=== PATIENT | female | born 1945 | race Caucasian/White ===

== ENCOUNTER 2018-02-15 17:37 | Inpatient (IN) ==
[2018-02-15 19:33] LABS: Basophils # 0.1 K/mcL (0.0-0.2); Eosinophils # 0.1 K/mcL (0.0-0.6); Hematocrit 25.1 % (35.3-44.9); Hemoglobin 7.8 g/dL (11.5-15.4); Immature Granulocytes % 0.5 % (0-4); Lymphocytes # 1.2 K/mcL (0.6-4.6); Lymphocytes % 20.6 %; Mean Corpuscular HGB Conc 31.1 g/dL (31.6-35.5); Mean Corpuscular Hemoglobin 27.2 pg (28.0-33.3); Mean Corpuscular Volume 87.5 fL (83.0-100.0); Mean Platelet Volume 10.2 fL (9.4-12.4); Monocytes # 0.6 K/mcL (0.0-1.3); Monocytes % 10.1 %; Platelet Count 337 K/mcL (140-400); Red Blood Count 2.87 M/mcL (3.82-4.97); Red Cell Distribution Width 14.1 % (11.5-14.5); Segmented Neutrophils % 66.8 %
[2018-02-15 19:45] LABS: Troponin I < 0.03 ng/mL (< 0.04)
[2018-02-15 19:46] LABS: Alanine Aminotransferase 10 Units/L (7-52); Albumin 2.5 g/dL (3.5-5.7); Albumin/Globulin Ratio 0.8 (1.1-2.2); Alkaline Phosphatase 62 Units/L (34-104); Aspartate Amino Transferase 12 Units/L (13-39); BUN/Creatinine Ratio 6 (6-26); Bilirubin,Total 0.4 mg/dL (0.3-1.0); Blood Urea Nitrogen 10 mg/dL (8-23); Calcium 9.2 mg/dL (8.6-10.3); Carbon Dioxide 31 mEq/L (23-29); Chloride 102 mEq/L (98-107); Globulin 3.3 g/dL (2.4-3.5); Glucose 118 mg/dL (70-105); Lipase 11 Units/L (11-82); Osmolality,Calculated 286 (280-300); Potassium 3.1 mEq/L (3.5-5.1); Sodium 138 mEq/L (136-145); Total Protein 5.8 g/dL (6.4-8.9); eGFR For Non-African Americans 32 (> 60)
[2018-02-15] MEDS ORDERED: Naloxone 0.4 MG/ML INJ IVP PRN (20:24)
[2018-02-15] MEDS ORDERED: 0.9 % Sodium Chloride 1,000 ML IVC SCH (20:30)
--- NOTE | 2018-02-15 21:00 | Internal Med History&Physical ---
Addendum entered and electronically signed by Layla Ahuja 02/15/18 23:09: A/P: Hypokalemia - K = 3.1 on admission; Repleted with 40mEq KCl; Replete as needed Original Note: <SeymourLayla - Last Filed: 02/15/18 22:45> Date of Encounter: 02/15/18 Time of Encounter: 21:00 Internal Medicine - H&P: HPI Chief complaint: Chest Pain Admitted From: Hospital to Hospital Transfer Plans for Post Hospital Care: Transfer Long Term Facility History of present illness: Ms. Pearson is a 72 year old female with past medical history significant for an stage renal disease on hemodialysis, hypertension, hyperlipidemia, diabetes, LLE DVT on coumadin who presented from dialysis to [facility] ED with complaints of chest pain. Patient states that she was feeling chest pain as of this morning prior to dialysis, and then after 2 hours of dialysis started fe eling chest pain again. Describes chest pain as heavy, pressure-like, "like something was sitting on his chest" and notes that it radiated to both her arms. Notes pain was significant but resolved after 5 minutes. Associated with fatigue, dyspnea, nausea, malaise, generalized bad feeling. Denies headache, vision changes, lightheadedness, dizziness, vomiting, weakness, pain with breathing, cough. States the chest pain persisted even on her way from dialysis to the ER, but was much milder. Patient also notes taking 2 sublingual nitroglycerin tabs, which alleviated chest pain. Of note, patient was recently diagnosed with left lower extremity DVT 1 month ago and currently on Coumadin. Initial vitals in the ED: T = 97.7, HR = 91, RR = 21, BP = 127/112, O2 = 96% on 3 L oxygen via nasal cannula EKG: HR = 94, AZ = 183, QRS = 93, QT = 379; normal sinus rhythm, normal axis, normal intervals, no acute ST changes Initial troponin: Negative CXR: No acute findings CBC: Hb/Hct = 7.5/24.6; down from previous hemoglobin 1 month ago (01/16/18) which equals 10.9 BMP: K = 3.2; BUN/Cr = 7/1.44; otherwise within normal limits INR = 1.8 Patient was initially given additional sublingual nitroglycerin, aspirin in the ED. Troponin and EKG were negative. Chest x-ray showed no acute findings. Patient was found to be anemic. Fecal occult blood test found to be positive. Due to patient's chest pain, history of DVT on Coumadin, and symptomatic anemia, decision was made to transfer patient from [facility] to [facility] for further workup of possible GI bleed. Upon examination, pt resting comfortably with family at bedside in no acute distress. Pt currently denying chest pain, discomfort, nausea, fatigue. Per discussion with family, DVT identified in Left Upper Leg, and pt began coumadin 1 month ago. Exam notable for 3/6 systolic murmur, but otherwise regular rate and rhythm; Lungs CTAB, and abd soft, non-tender. LLE 1.5 swelling greater than RLE. Distal pulses palpable. Advertising Dispatch Clerk and Cripple Worker were consulted. Plan to admit patient for further workup of anemia and chest pain. Past Med Surg Social Fam HX - Past Medical History Attestation: Yes The following information was validated with the patient. Source: patient, old records reviewed Medical history: arthritis, DVT, diabetes, dialysis, hyperlipidemia, hypertens ion, renal disease, other Additional medical history: CKD STAGE 4. HTN. HIGH CHOLESTEROL. DM. DVT HISTORY Psychiatric history: no psych history - Past Surgical History Surgical History: hysterectomy, orthopedic, other - Social History Smoking Status: Never smoker Smokeless Tobacco Status: No Alcohol use: none Drug use: none Internal Medicine - H&P: Meds Aspirin 81 mg PO DAILY 07/12/17 [History] Calcitriol [Rocaltrol] 0.25 mcg PO DAILY 07/12/17 [History] Cholecalciferol (D-3) [Vitamin D] 1,000 unit PO DAILY 07/12/17 [History] Cranberry 500 mg PO DAILY 07/12/17 [History] Insulin Glargine,Hum.rec.anlog [Lantus Solostar] 30 unit SQ HS 07/12/17 [Hi story] Insulin LISPRO [Humalog] 15 unit SQ TID 07/12/17 [History] Losartan/Hydrochlorothiazide [Hyzaar 100-25 Tablet] 1 tab PO DAILY 07/12/17 [History] Pravastatin Sodium [Pravachol] 40 mg PO DAILY 07/12/17 [History] amLODIPine [Norvasc] 5 mg PO DAILY 07/12/17 [History] Furosemide [Lasix] 40 mg PO DAILY PRN 10/04/17 [History] Allergy/AdvReac Type Severity Reaction Status Date / Time iodine Allergy See Verified 10/04/17 10:10 Comments latex Allergy Rash Verified 10/04/17 10:10 naproxen [From Naprosyn] Allergy See Verified 10/04/17 10:10 Comments morphine AdvReac Vomiting Verified 10/04/17 10:10 All Systems PM: A 10-system review of systems was performed and is negative for pertinent findings except as documented above in the HPI. - Constitutional Constitutional: fatigue, malaise, no chills, no fever(s), no falls, no lethargy, no weakness - EENT Eyes: no blurry vision, no change in vision Nose, mouth and throat: dry mouth, no facial pain, no nasal congestion, no nasal discharge, no neck pain, no post-nasal drip, no sinus pain, no sore throat - Cardiovascular Cardiovascular ROS IM: no chest pain, no diaphoresis, no dyspnea, no dyspnea on exertion, no edema, no irregular heart rhythm, no lightheadedness, no palpitations, no syncope - Respiratory Respiratory: no cough, no dyspnea, no dyspnea on exertion - Gastrointestinal Gastrointestinal: no abdominal pain, no constipation, no cramping, no diarrhea, no heartburn, no hematemesis, no hematochezia, no loose stools, no melena, no nausea, no vomiting - Musculoskeletal Musculoskeletal ROS IM: no back pain, no neck pain - Integumentary Integumentary IM: no rash - Neurological Neurological ROS: confusion, no dizziness, no headache(s), no numbness, no weakness - Constitutional Vitals: Temp Pulse Resp BP Pulse Ox 98.6 F 94 16 142/51 98 02/15/18 20:21 02/15/18 20:21 02/15/18 20:21 02/15/18 20:21 02/15/18 20:21 General appearance: Present: cooperative, A&O X 3, pleasant, no acute distress, obese, answers questions appropriately Exam: GEN: AOx3; NAD; resting comfortably; family at bedside HEENT: Atraumatic, normocephalic; EOMI; mucous membranes moist; EOMI; PERRLA CARDIO: 3/6 systolic murmur; RRR; no extra heart sounds RESP: CTAB, no wheezes, rales, rhonchi; O2 sats = 98 on 2L NC ABD: Soft, non-tender, non-distended; bowel sounds present; no rebound or guarding EXT: LLE 1.5 times more swelling > RLE; non tender; no rashes or lesions NEURO: CN 2-12 intact; no focal deficits Internal Med - H&P Results - Labs CBC & Chem 7: 02/15/18 18:57 02/15/18 18:57 Labs: Short CBC 02/15/18 Range/Units 18:57 WBC 6.0 (4.3-11.1) K/mcL Hgb 7.8 L (11.5-15.4) g/dL Hct 25.1 L (35.3-44.9) % Plt Count 337 (140-400) K/mcL Neutrophils # 4.0 (1.6-8.9) K/mcL BMP 02/15/18 18:57 Sodium 138 Potassium 3.1 L Chloride 102 Carbon Dioxide 31 H BUN 10 Creatinine 1.60 H Glucose 118 H Calcium 9.2 Cardiac Enzymes 02/15/18 Range/Units 18:57 Troponin I < 0.03 (< 0.04) ng/mL Liver Function 02/15/18 Range/Units 18:57 Total Bilirubin 0.4 (0.3-1.0) mg/dL AST 12 L (13-39) Units/L ALT 10 (7-52) Units/L Alkaline Phosphatase 62 (34-104) Units/L Albumin 2.5 L (3.5-5.7) g/dL - EKG Data -: EKG Interpreted by Myself EKG shows normal: sinus rhythm (NSR), axis (Normal [place]), intervals (Regular Intervals), QRS complexes, ST-T waves (No acute ST Changes) Rate: normal - EKG Data Prior EKG available for review: no Interpretation IM: normal EKG - Assessment and plan (1) Chest pain Current Visit: Yes Status: Acute Assessment and plan: Ms. Pearson is a 72 year old female with past medical history significant for an stage renal disease on hemodialysis, hypertension, hyperlipidemia, diabetes, LLE DVT on coumadin who presented from dialysis to [facility] ED with complaints of chest pain. Associated with pressure-like, heavy feeling in center of chest, radiating to arm - subsided after 5 minutes; began before or during dialysis Associated Sxs: Dyspnea, fatigue, nausea, malaise S/p sublingual nitrolgycerin x 2, aspirin Family notes patient had left heart cath previously 4-5 years ago, and states no stents were placed Hx of LLE DVT currently on coumadin; pt denies pleuritic chest pain Initial vitals in the ED: T = 97.7, HR = 91, RR = 21, BP = 127/112, O2 = 96% on 3 L oxygen via nasal cannula EKG: HR = 94, AZ = 183, QRS = 93, QT = 379; normal sinus rhythm, normal axis, normal intervals, no acute ST changes Initial troponin: Negative CXR: No acute findings HEART Score: 5 (suspicous hx, age > 65, >3 risk factors; normal trop, normal ekg) Wells Score: 4.5 (Known hx of DVT, signs and sxs of DVT) PLAN: Monitor vitals Monitor on hairspring vibrator for further or worsening symptoms Trend troponins - negative x 2 thus far V/Q Scan - pt has hx of DVT, and moderate suspicion for PE; allergy to contrast dye so cannot do CTA Qualifiers: Chest pain type: unspecified Qualified Code(s): R07.9 - Chest pain, unspecified (2) Anemia Current Visit: Yes Status: Acute Assessment and plan: Pt found to anemic Hb/Hct = 7.5/24.6; previous hemoglobin 1 month ago (01/16/18) = 10.9 Currently on Coumadin for tx of DVT INR = 1.8 FOBT = positive Consulted with GI - recommended 40mg Protonix BID, Vitamin K, and NPO after midnight - pending eval in the AM PLAN: Monitor vitals Protonix BID Vitamin K Cont IVF NPO after midnight; otherwise clear liquid diet Transfuse if Hb < 7 GI Recommendations appreciated Qualifiers: Anemia type: unspecified type Qualified Code(s): D64.9 - Anemia, unspecified (3) CKD (chronic kidney disease) stage 4, GFR 15-29 ml/min Current Visit: Yes Status: Acute Assessment and plan: Hx of Stage 4 CKD GFR = 32 BUN/Cr = 10/1.6 On Hemodialysis PLAN: Nephrology recommendations appreciated Renally dose medications Avoid nephrotoxic agents (4) DVT (deep venous thrombosis) Current Visit: Yes Status: Acute Assessment and plan: Recently diagnosed with LLE proximal DVT per family On coumadin PLAN: Hold coumadin for now due to possible GI Bleed - pending GI recommendations Consider IVC filter if necessary Qualifiers: DVT location: lower extremity Affected thrombotic vein of extremity: unspecified lower extremity proximal vein Chronicity: acute Laterality: left Qualified Code(s): I82.4Y2 - Acute embolism and thrombosis of unspecified deep veins of left proximal lower extremity (5) HTN (hypertension) Current Visit: Yes Status: Acute Assessment and plan: BP Controlled Cont home meds Qualifiers: Hypertension type: essential hypertension Qualified Code(s): I10 - Essential (primary) hypertension (6) HLD (hyperlipidemia) Current Visit: Yes Status: Acute Assessment and plan: Hx HLD Cont home meds Qualifiers: Hyperlipidemia type: unspecified Qualified Code(s): E78.5 - Hyperlipidemia, unspecified (7) Diabetes Current Visit: Yes Status: Acute Assessment and plan: Insulin Sliding Scale Diabetic Clear Liquid Diet NPO at midnight per GI Accuchecks q6h Qualifiers: Diabetes mellitus type: other specified (including FRED) 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 Pearson is a 72 year old female All Systems PM: A 10-system review of systems was performed and is negative for pertinent findings except as documented above in the HPI. - Constitutional Vitals: Temp Pulse Resp BP Pulse Ox 98.9 F 100 18 150/68 95 02/16/18 07:48 02/16/18 07:48 02/16/18 07:48 02/16/18 07:48 02/16/18 07:48 Internal Med - H&P Results - Labs CBC & Chem 7: 02/16/18 00:59 02/16/18 00:59 Labs: Short CBC 02/15/18 02/16/18 Range/Units 18:57 00:59 WBC 6.0 5.7 (4.3-11.1) K/mcL Hgb 7.8 L 7.4 L (11.5-15.4) g/dL Hct 25.1 L 24.5 L (35.3-44.9) % Plt Count 337 352 (140-400) K/mcL Neutrophils # 4.0 3.4 (1.6-8.9) K/mcL BMP 02/15/18 02/16/18 18:57 00:59 Sodium 138 138 Potassium 3.1 L 3.2 L Chloride 102 103 Carbon Dioxide 31 H 31 H BUN 10 11 Creatinine 1.60 H 1.71 H Glucose 118 H 134 H Calcium 9.2 9.3 Cardiac Enzymes 02/15/18 02/16/18 Range/Units 18:57 00:59 Troponin I < 0.03 < 0.03 (< 0.04) ng/mL Liver Function 02/15/18 02/16/18 Range/Units 18:57 00:59 Total Bilirubin 0.4 0.4 (0.3-1.0) mg/dL AST 12 L 13 (13-39) Units/L ALT 10 10 (7-52) Units/L Alkaline Phosphatase 62 63 (34-104) Units/L Albumin 2.5 L 2.6 L (3.5-5.7) g/dL - Impressions ITS Impressions Pulmonary Perfusion Imaging 02/15/18 21:34 IMPRESSION: Normal study. D/ / Kaden Toth MD / Kaden Toth MD Interpreting Provider: Kaden Toth MD Chest X-Ray 02/15/18 21:50 IMPRESSION: Negative portable study. D/ / Samantha Guan Cha, MD / Samantha Guan Cha, MD Interpreting Provider: Samantha Guan Cha, MD - Time Spent With Patient Total time spent is greater than 50% in coordination of care (as documented) at patient's floor/unit and/or counseling patient: - Attending Attestation I performed a history and physical examination of the patient and discussed her case with the resident. I reviewed the resident's note and agree with the plan of care.
[2018-02-15] MEDS ORDERED: *HR* Dextrose 50 % in Water (Syg) 50 ML SYRINGE IVP PRN (21:08)
[2018-02-15] MEDS ORDERED: D5% in Water 1,000 ML IVC PRN (21:08)
[2018-02-15] MEDS ORDERED: Dextrose Gel 15 GM/37.5 ML TUBE PO PRN ×2 (21:08)
[2018-02-15] MEDS ORDERED: *HR* Phytonadione 10 MG/ML AMPUL SQ ONE (21:18)
[2018-02-15] MEDS: Insulin LISPRO 300 UNITS/3 ML VIAL SQ SCH (22:14)
[2018-02-16] MEDS ORDERED: Melatonin 3 MG TABLET PO PRN (00:23)
[2018-02-16 01:40] LABS: Basophils # 0.1 K/mcL (0.0-0.2); Basophils % 1.2 %; Eosinophils # 0.1 K/mcL (0.0-0.6); Eosinophils % 2.1 %; Hematocrit 24.5 % (35.3-44.9); Hemoglobin 7.4 g/dL (11.5-15.4); Immature Granulocytes % 0.3 % (0-4); Lymphocytes # 1.4 K/mcL (0.6-4.6); Lymphocytes % 24.4 %; Mean Corpuscular HGB Conc 30.2 g/dL (31.6-35.5); Mean Corpuscular Hemoglobin 26.6 pg (28.0-33.3); Mean Corpuscular Volume 88.1 fL (83.0-100.0); Mean Platelet Volume 10.1 fL (9.4-12.4); Monocytes # 0.7 K/mcL (0.0-1.3); Neutrophils # 3.4 K/mcL (1.6-8.9); Platelet Count 352 K/mcL (140-400); Red Blood Count 2.78 M/mcL (3.82-4.97); Red Cell Distribution Width 14.6 % (11.5-14.5)
[2018-02-16 02:00] LABS: Albumin 2.6 g/dL (3.5-5.7); Albumin/Globulin Ratio 0.8 (1.1-2.2); Bilirubin,Total 0.4 mg/dL (0.3-1.0); Calcium 9.3 mg/dL (8.6-10.3); Globulin 3.3 g/dL (2.4-3.5); Magnesium 1.7 mg/dL (1.6-2.6); Phosphorous 2.3 mg/dL (2.7-4.5); Potassium 3.2 mEq/L (3.5-5.1); Total Protein 5.9 g/dL (6.4-8.9)
[2018-02-16] MEDS: Pantoprazole 40 MG VIAL IVP SCH ×2 (05:50→16:57)
[2018-02-16] MEDS: Insulin LISPRO 300 UNITS/3 ML VIAL SQ SCH ×4 (07:49→22:01)
--- NOTE | 2018-02-16 09:10 | Internal Med Progress Note ---
Hospitalist Progress Note - Encounter Date of Encounter: 02/16/18 Time of Encounter: 09:00 - Exam Vitals: Temp Pulse Resp BP Pulse Ox 98.9 F 100 18 150/68 95 02/16/18 07:48 02/16/18 07:48 02/16/18 07:48 02/16/18 07:48 02/16/18 07:48 Exam: GEN: AOx3; NAD; resting comfortably; family at bedside HEENT: Atraumatic, normocephalic; EOMI; mucous membranes moist; EOMI; PERRLA CARDIO: 3/6 systolic murmur; RRR; no extra heart sounds RESP: CTAB, no wheezes, rales, rhonchi; O2 sats = 98 on 2L NC ABD: Soft, non-tender, non-distended; bowel sounds present; no rebound or guarding EXT: LLE 1.5 times more swelling > RLE; non tender; no rashes or lesions NEURO: CN 2-12 intact; no focal deficits - Assessment and Plan (1) Chest pain Current Visit: Yes Status: Acute Assessment and Plan: Pt comes in with chest pain during dialysis and has rsk factor s for CAD. V/Q scan to r/o PE negative Will obtain 2D echo and nuclear stress test (2) GI bleed Current Visit: Yes Status: Acute Assessment and Plan: Acute blood loss anemia with likely GI bleed Transfuse 1 unit of PRBC to keep hgb above 8. Plan for EGD and colonscopy in am Patient's baseline hemoglobin is 11 but came in at 7 yesterday. Continue IV protonix, CBC q 8hrs (3) CKD (chronic kidney disease) stage 4, GFR 15-29 ml/min Current Visit: Yes Status: Acute Assessment and Plan: ESRD . continue dialysis per schedule (4) Diabetes Current Visit: Yes Status: Acute Assessment and Plan: Continue insulin and monitor fingersticks (5) HLD (hyperlipidemia) Current Visit: Yes Status: Acute Assessment and Plan: Continue home meds (6) HTN (hypertension) Current Visit: Yes Status: Acute Assessment and Plan: Will start on amlodipine (7) DVT (deep venous thrombosis) Current Visit: Yes Status: Acute Assessment and Plan: On coumadin which is held due to GI bleed - Time Spent with Patient Total time spent is greater than 50% in coordination of care (as documented) at patient's floor/unit and/or counseling patient: Internal Medicine: Result - Labs CBC & Chem 7: 02/16/18 00:59 02/16/18 00:59 Labs: Short CBC 02/15/18 02/16/18 Range/Units 18:57 00:59 WBC 6.0 5.7 (4.3-11.1) K/mcL Hgb 7.8 L 7.4 L (11.5-15.4) g/dL Hct 25.1 L 24.5 L (35.3-44.9) % Plt Count 337 352 (140-400) K/mcL Neutrophils # 4.0 3.4 (1.6-8.9) K/mcL BMP 02/15/18 02/16/18 18:57 00:59 Sodium 138 138 Potassium 3.1 L 3.2 L Chloride 102 103 Carbon Dioxide 31 H 31 H BUN 10 11 Creatinine 1.60 H 1.71 H Glucose 118 H 134 H Calcium 9.2 9.3 Cardiac Enzymes 02/15/18 02/16/18 Range/Units 18:57 00:59 Troponin I < 0.03 < 0.03 (< 0.04) ng/mL Liver Function 02/15/18 02/16/18 Range/Units 18:57 00:59 Total Bilirubin 0.4 0.4 (0.3-1.0) mg/dL AST 12 L 13 (13-39) Units/L ALT 10 10 (7-52) Units/L Alkaline Phosphatase 62 63 (34-104) Units/L Albumin 2.5 L 2.6 L (3.5-5.7) g/dL - Impressions Impressions Pulmonary Perfusion Imaging 02/15/18 21:34 IMPRESSION: Normal study. D/ / Kaden Toth MD / Kaden Toth MD Interpreting Provider: Kaden Toth MD Chest X-Ray 02/15/18 21:50 IMPRESSION: Negative portable study. D/ / Samantha Guan Cha, MD / Samantha Guan Cha, MD Interpreting Provider: Samantha Guan Cha, MD Consult Discharge Plan - Plan Referrals: NONE,PCP [Primary Care Provider] - (1) Chest pain Qualifiers: Chest pain type: unspecified Qualified Code(s): R07.9 - Chest pain, unspecified (2) GI bleed Qualifiers: GI bleed type/associated pathology: unspecified gastrointestinal hemorrhage type Qualified Code(s): K92.2 - Gastrointestinal hemorrhage, unspecified (4) Diabetes Qualifiers: Diabetes mellitus type: other specified (including FRED) Diabetes mellitus halfway insulin use: with rig welder use Diabetes mellitus complication status: without complication Qualified Code(s): E13.9 - Other specified diabetes mellitus without complications; Z79.4 - industrial cook (current) use of i nsulin (5) HLD (hyperlipidemia) Qualifiers: Hyperlipidemia type: unspecified Qualified Code(s): E78.5 - Hyperlipidemia, unspecified (6) HTN (hypertension) Qualifiers: Hypertension type: essential hypertension Qualified Code(s): I10 - Essential (primary) hypertension (7) DVT (deep venous thrombosis) Qualifiers: DVT location: lower extremity Affected thrombotic vein of extremity: unspecified lower extremity proximal vein Chronicity: acute Laterality: left Qualified Code(s): I82.4Y2 - Acute embolism and thrombosis of unspecified deep veins of left proximal lower extremity
[2018-02-16 09:41] LABS: INR 1.7; Prothrombin Time 19.3 Seconds (9.4-12.1)
[2018-02-16] MEDS ORDERED: 0.9 % Sodium Chloride 250 ML ONE (11:04)
--- NOTE | 2018-02-16 11:58 | Gastroenterology Consult Note ---
<Chris Henderson - Last Filed: 02/16/18 11:48> Date of Encounter: 02/16/18 Time of Encounter: 09:50 - Assessment and plan (1) Anemia Current Visit: Yes Status: Acute Assessment and plan: On admission here, Hgb 7.8 and today Hgb 7.4. Baseline Hgb 11-12. Continue to monitor CBC and transfuse PRBC as needed. Plan for EGD and colonoscopy tomorrow. Clear liquid diet today, no red or purple. NPO at midnight. If unable tolerate NuLytely please use MiraLAX prep. If not clear by 6 AM, give 2 tap water enemas. Qualifiers: Anemia type: unspecified type Qualified Code(s): D64.9 - Anemia, unspecified (2) GI bleed Current Visit: Yes Status: Acute Assessment and plan: Plan for EGD and colonoscopy tomorrow. Qualifiers: GI bleed type/associated pathology: unspecified gastrointestinal hemorrhage type Qualified Code(s): K92.2 - Gastrointestinal hemorrhage, unspecified (3) DVT (deep venous thrombosis) Current Visit: Yes Status: Acute Assessment and plan: Patient on Coumadin, check PT/INR. Qualifiers: DVT location: lower extremity Affected thrombotic vein of extremity: unspecified lower extremity proximal vein Chronicity: acute Laterality: left Qualified Code(s): I82.4Y2 - Acute embolism and thrombosis of unspecified deep veins of left proximal lower extremity - Time Spent With Patient Total time spent is greater than 50% in coordination of care (as documented) at patient's floor/unit and/or counseling patient: GI History of Present Illness - Data of Consult Patient: new to practice Consult date: 02/16/18 Requesting Physician: Christina Orosco MD - Consult Narrative Reason for consult: GI bleed History of present illness: Ms. Pearson is a 72 year old female with PMHx of DVT, DM, ESRD, HLD, HTN, LLE DVT on Coumadin who presented from dialysis to [facility] ED with complaints of chest pain. Patient was initially given additional sublingual nitroglycerin, aspirin in the ED. Troponin and EKG were negative. Chest x-ray showed no acute findings. Patient was found to be anemic. Fecal occult blood test found to be positive. On admission here, Hgb 7.8 and today Hgb 7.4. Baseline Hgb 11-12. Procedures: None NSAIDs: ASA Anticoagulation: Coumadin Past Med Surg Social Fam HX - Past Medical History Medical history: arthritis, DVT, diabetes, dialysis, hyperlipidemia, hypertension, renal disease, other Additional medical history: CKD STAGE 4. HTN. HIGH CHOLESTEROL. DM. DVT HISTORY Psychiatric history: no psych history - Past Surgical History Surgical History: hysterectomy, orthopedic, other - Social History Smoking Status: Never smoker Smokeless Tobacco Status: No Alcohol use: none Drug use: none - Gastrointestinal Gastrointestinal: Present: as per HPI - Constitutional Constitutional: as per HPI - EENT Eyes: as per HPI Ears: Present: as per HPI Nose, mouth and throat: Present: as per HPI - Cardiovascular Cardiovascular ROS: Present: as per HPI - Respiratory Respiratory IM: Present: as per HPI - Genitourinary Genitourinary: Absent: change in color, Urinary frequency - Neurological ROS Neurological GI: Present: as per HPI - Hematologic/Lymphatic Hematologic/Lymphatic pediatric: Present: as per HPI - Musculoskeletal Musculoskeletal ROS GI: Present: as per HPI - Integumentary Integumentary GI: Present: as per HPI - Psychiatric ROS Psychiatric GI: Present: as per HPI - Endocrine Endocrine IM: Present: as per HPI - Constitutional Vitals: Temp Pulse Resp BP Pulse Ox 98.2 F 96 18 154/68 96 02/16/18 11:03 02/16/18 11:03 02/16/18 11:03 02/16/18 11:03 02/16/18 11:03 General appearance: Present: cooperative, A&O X 3, no acute distress, answers questions appropriately - Head Head exam: Present: atraumatic, normocephalic - Eye Eye exam: Present: normal appearance, sclera anicteric - ENT ENT exam: Present: mucous membranes dry - Neck Neck exam general surgery: Present: normal inspection, trachea midline - Respiratory Respiratory exam: Present: decreased breath sounds, CTAB - Cardiovascular Cardiovascular exam: Present: RRR, +S1, +S2 - GI/Abdominal GI/Abdominal exam: Present: soft, no peritoneal signs. Absent: distended, firm, guarding, tenderness - Rectal Rectal exam: Present: deferred - Extremities Exam Extremities exam: Present: warm - Neurological Exam Neurological exam: Present: no focal deficits - Psychiatric Psychiatric exam: Present: normal affect, normal mood - Skin Skin exam: Present: dry, intact, normal color, warm Results - Labs CBC & Chem 7: 02/16/18 00:59 02/16/18 00:59 Labs: Last Result Calcium 9.3 mg/dL (8.6-10.3) 02/16/18 00:59 Troponin I < 0.03 ng/mL (< 0.04) 02/16/18 00:59 Entire Visit Hgb 7.4 g/dL (11.5-15.4) L 02/16/18 00:59 Hct 24.5 % (35.3-44.9) L 02/16/18 00:59 PT 19.3 Seconds (9.4-12.1) H 02/16/18 09:24 Total Bilirubin 0.4 mg/dL (0.3-1.0) 02/16/18 00:59 AST 13 Units/L (13-39) 02/16/18 00:59 ALT 10 Units/L (7-52) 02/16/18 00:59 Lipase 11 Units/L (11-82) 02/15/18 18:57 - ABG ABG results: PT/INR, D-dimer PT 19.3 Seconds (9.4-12.1) H 02/16/18 09:24 - Impressions Impressions Pulmonary Perfusion Imaging 02/15/18 21:34 IMPRESSION: Normal study. D/ / Kaden Toth MD / Kaden Toth MD Interpreting Provider: Kaden Toth MD Chest X-Ray 02/15/18 21:50 IMPRESSION: Negative portable study. D/ / Samantha Guan Cha, MD / Samantha Guan Cha, MD Interpreting Provider: Samantha Guan Cha, MD Consult Discharge Plan - Plan Referrals: NONE,PCP [Primary Care Provider] - <Pati Valadez - Last Filed: 02/16/18 20:33> Date of Encounter: 02/16/18 Time of Encounter: 18:00 - Time Spent With Patient Total time spent is greater than 50% in coordination of care (as documented) at patient's floor/unit and/or counseling patient: GI History of Present Illness - Data of Consult Requesting Physician: Christina Orosco MD - Consult Narrative History of present illness: Ms. Pearson is a 72 year old female - Constitutional Vitals: Temp Pulse Resp BP Pulse Ox 98.2 F 107 18 147/62 96 02/16/18 15:58 02/16/18 15:58 02/16/18 15:58 02/16/18 15:58 02/16/18 15:58 Results - Labs CBC & Chem 7: 02/16/18 16:58 02/16/18 00:59 Labs: Last Result Calcium 9.3 mg/dL (8.6-10.3) 02/16/18 00:59 Troponin I < 0.03 ng/mL (< 0.04) 02/16/18 00:59 Entire Visit Hgb 8.7 g/dL (11.5-15.4) L 02/16/18 16:58 Hct 28.3 % (35.3-44.9) L 02/16/18 16:58 PT 19.3 Seconds (9.4-12.1) H 02/16/18 09:24 Total Bilirubin 0.4 mg/dL (0.3-1.0) 02/16/18 00:59 AST 13 Units/L (13-39) 02/16/18 00:59 ALT 10 Units/L (7-52) 02/16/18 00:59 Lipase 11 Units/L (11-82) 02/15/18 18:57 - ABG ABG results: PT/INR, D-dimer PT 19.3 Seconds (9.4-12.1) H 02/16/18 09:24 - Impressions Impressions Pulmonary Perfusion Imaging 02/15/18 21:34 IMPRESSION: Normal study. D/ / Kaden Toth MD / Kaden Toth MD Interpreting Provider: Kaden Toth MD Chest X-Ray 02/15/18 21:50 IMPRESSION: Negative portable study. D/ / Samantha Guan Cha, MD / Samantha Guan Cha, MD Interpreting Provider: Samantha Guan Cha, MD - Attending Attestation I have personally performed a face to face evaluation on this patient. I have reviewed and agree with the care plan. History and Exam by me shows: Pt with ESRD admitted with anemia. O/E AA but confused. Has tander Left side abd subjective but abd soft, no rebound. A: Pt with anemia with ESRD Rec:EGD/colon am
[2018-02-16] MEDS: *HR* LORazepam 2 MG/ML VIAL IVP PRN (13:00)
--- NOTE | 2018-02-16 13:45 | Nephrology Consult Note ---
Addendum entered and electronically signed by Angelo Jackman MD 02/17/18 18:50: I examined this patient and discussed the medical decision-making with PORTER Sotelo. I agree with the documented findings, disposition and treatment plan as described except to the extent set forth below. Patient was seen on dialysis. Original Note: Date of Encounter: 02/16/18 Time of Encounter: 09:00 Assessment and Plan (1) ESRD (end stage renal disease) on dialysis Current Visit: Yes Status: Acute Current regimen is MWF at [facility] with [facility]. Plan for HD tomorrow. Renal diet (when able to advance). Strict I/O Avoid nephrotoxins and renal dose all medications. (2) Anemia Current Visit: Yes Status: Acute Hgb is 7.4, down from last month. GI to scope upper/lower tomorrow. Qualifiers: Anemia type: unspecified type Qualified Code(s): D64.9 - Anemia, unspecified (3) Chest pain Current Visit: Yes Status: Acute Appears resolved, patient does not endorse, however she is a poor historian. Qualifiers: Chest pain type: unspecified Qualified Code(s): R07.9 - Chest pain, unspecified (4) GI bleed Current Visit: Yes Status: Acute GI on board. Transfusions per primary. Qualifiers: GI bleed type/associated pathology: unspecified gastrointestinal hemorrhage type Qualified Code(s): K92.2 - Gastrointestinal hemorrhage, unspecified History of Present Illness - Reason for Consult Consult date: 02/16/18 end stage renal disease Requesting physician: Christina Orosco - Chief Complaint CP, possible GI Bleed - History of Present Illness Ms. Pearson is a 72 year old female who presented to [facility] after HD for chest pain. Patient is unsure when the chest pain started. She was transferred to [facility] for evaluation. PMH: arthritis, DVT, diabetes, hyperlipidemia, hypertension. Pt has recently started HD, current regimen is MWF at [facility]. Last treatment was Tuesday. Patient is a poor historian, and confuses where she is now and where she gets hemodialysis. ROS unobtainable due to mentation. Labwork did show a Hgb of 7.5 and stool occult was negative. GI has been consulted and will attempt EGD/Colonoscopy tomorrow. She currently lives in a custodial, and denies etoh, tobacco, or illicit drug use. Past Med Surg Social Fam HX - Past Medical History Medical history: arthritis, DVT, diabetes, dialysis, hyperlipidemia, hypertension, renal disease, other Additional medical history: CKD STAGE 4. HTN. HIGH CHOLESTEROL. DM. DVT HISTORY Psychiatric history: no psych history - Past Surgical History Surgical History: hysterectomy, orthopedic, other - Social History Smoking Status: Never smoker Smokeless Tobacco Status: No Alcohol use: none Drug use: none Medications and Allergies Calcitriol [Rocaltrol] 0.25 mcg PO 0830 07/12/17 [History] Pravastatin Sodium [Pravachol] 40 mg PO HS 07/12/17 [History] Acetaminophen [Tylenol] 500 mg PO Q4H PRN 02/16/18 [History] Buspirone HCl [Buspar] 5 mg PO BID 02/16/18 [History] Carvedilol 3.125 mg PO BID 02/16/18 [History] Glycerin [Sani-Supp] 1 supp RC DAILY PRN 02/16/18 [History] Insulin ASPART [NovoLOG] 15 unit SQ TID 02/16/18 [History] Insulin DETEMIR [Levemir Flextouch] 15 unit SQ HS 02/16/18 [History] Losartan Potassium 25 mg PO 1200 02/16/18 [History] Melatonin 5 mg PO HS 02/16/18 [History] Sennosides/Docusate Sodium [Docusate Sodium-Senna Tablet] 2 tab PO BID 02/16/18 [History] Allergy/AdvReac Type Severity Reaction Status Date / Time iodine Allergy See Verified 02/16/18 10:15 Comments latex Allergy Rash Verified 02/16/18 10:15 naproxen [From Naprosyn] Allergy See Verified 02/16/18 10:15 Comments morphine AdvReac Vomiting Verified 02/16/18 10:15 Exam - Vital Signs Vital signs: Initial Vital Signs Temp Pulse Resp BP Pulse Ox 98.6 F 94 16 142/51 98 02/15/18 20:21 02/15/18 20:21 02/15/18 20:21 02/15/18 20:21 02/15/18 20:21 Vital Signs - Last 8 Hours Temp Pulse Resp BP Pulse Ox 02/16/18 12:45 98.9 F 102 18 182/80 95 02/16/18 12:30 98.4 F 100 17 180/92 94 02/16/18 11:03 98.2 F 96 18 154/68 96 02/16/18 09:04 95 02/16/18 07:48 98.9 F 100 18 150/68 95 Intake and Output 02/15/18 02/16/18 02/16/18 23:59 07:59 15:59 Intake Total 0 / 0 Output Total 0 / 0 Balance 0 / 0 Intake: Oral 0 / 0 Blood Product 0 / 0 Rbcs Leuko Poor As-1 Unit 0 / 0 [id number] Output: Urine 0 / 0 Other: Stool Size Small Stool Consistency soft Stool Characteristics Pasty Stool Color Yellow # Urine Diapers 1 1 # Bowel Movement Diapers 1 Weight 114.4 kg Blood Glucose* 125 121 Patient Weight 02/16/18 23:59 Weight 114.4 kg - General Appearance General appearance: well-developed, well-nourished EENT: ATNC, hearing intact, vision intact Neck: supple Respiratory: clear Cardiology: no edema, normal S1, normal S2 - Dialysis Access Dialysis Vascular Access: Venous Catheter (Tunneled Line, drsg c/d/i) thrill: Yes bruit: Yes Gastrointestinal: normoactive bowel sounds, no tenderness, no guarding Integumentary: no rash, warm and dry Neurologic: alert and oriented x3 Psychiatric: mood/affect appropriate, cooperative Results - Lab Results 02/16/18 00:59 02/16/18 00:59 Most recent lab results Calcium 9.3 mg/dL (8.6-10.3) 02/16/18 00:59 Phosphorus 2.3 mg/dL (2.7-4.5) L 02/16/18 00:59 Magnesium 1.7 mg/dL (1.6-2.6) 02/16/18 00:59 Consult Discharge Plan - Plan Referrals: NONE,PCP [Primary Care Provider] -
[2018-02-16] MEDS: Potassium Chloride Elixir 20 MEQ/15 ML UDC PO SCH ×2 (14:38→16:57)
[2018-02-16] MEDS ORDERED: Glycerin RECTAL Suppository RC PRN (15:08)
[2018-02-16] MEDS ORDERED: SODIUM CHLORIDE/NAHCO3/KCL/PEG 4,000 ML SOLN.RECON PO ONE (17:00)
[2018-02-16 17:13] LABS: Hematocrit 28.3 % (35.3-44.9); Hemoglobin 8.7 g/dL (11.5-15.4)
[2018-02-16] MEDS: Sennosides/Docusate Sodium TABLET PO SCH (20:40)
[2018-02-16] MEDS: Melatonin 3 MG TABLET PO SCH (20:40)
[2018-02-16] MEDS: Insulin DETEMIR 100 UNIT/ML X5UNITS SQ SCH (22:06)
[2018-02-17 04:21] LABS: Basophils # 0.1 K/mcL (0.0-0.2); Basophils % 0.9 %; Eosinophils # 0.2 K/mcL (0.0-0.6); Eosinophils % 2.9 %; Hematocrit 27.7 % (35.3-44.9); Hemoglobin 8.5 g/dL (11.5-15.4); Immature Granulocytes % 0.3 % (0-4); Lymphocytes # 1.2 K/mcL (0.6-4.6); Lymphocytes % 18.3 %; Mean Corpuscular HGB Conc 30.7 g/dL (31.6-35.5); Mean Corpuscular Hemoglobin 27.4 pg (28.0-33.3); Mean Corpuscular Volume 89.4 fL (83.0-100.0); Mean Platelet Volume 9.9 fL (9.4-12.4); Monocytes # 0.7 K/mcL (0.0-1.3); Monocytes % 10.5 %; Neutrophils # 4.3 K/mcL (1.6-8.9); Platelet Count 354 K/mcL (140-400); Red Cell Distribution Width 14.6 % (11.5-14.5); Segmented Neutrophils % 67.1 %
[2018-02-17 04:34] LABS: Calcium 9.9 mg/dL (8.6-10.3); Potassium 3.9 mEq/L (3.5-5.1)
[2018-02-17] MEDS: Pantoprazole 40 MG VIAL IVP SCH ×2 (05:33→17:22)
[2018-02-17] MEDS ORDERED: 0.9 % Sodium Chloride 1,000 ML IVC SCH (05:45)
[2018-02-17] MEDS ORDERED: *HR* Metoprolol 5 MG/5 ML VIAL IVP ONE (06:39)
[2018-02-17] MEDS ORDERED: 0.9 % Sodium Chloride 2,000 ML ONE (07:24)
[2018-02-17] MEDS ORDERED: 0.9 % Sodium Chloride 250 ML IVC PRN (07:52)
[2018-02-17] MEDS ORDERED: *HR* Heparin 10,000 UNIT/10 ML VIAL IV PRN (07:52)
[2018-02-17] MEDS ORDERED: 0.9 % Sodium Chloride 1,000 ML PRIME SCH (08:00)
--- NOTE | 2018-02-17 08:00 | Internal Med Progress Note ---
Hospitalist Progress Note - Encounter Date of Encounter: 02/17/18 Time of Encounter: 08:00 - Exam Vitals: Temp Pulse Resp BP Pulse Ox 98.7 F 105 18 185/75 96 02/17/18 06:50 02/17/18 06:50 02/17/18 06:50 02/17/18 06:50 02/17/18 06:50 Exam: GEN: AOx3; NAD; resting comfortably; family at bedside HEENT: Atraumatic, normocephalic; EOMI; mucous membranes moist; EOMI; PERRLA CARDIO: 3/6 systolic murmur; RRR; no extra heart sounds RESP: CTAB, no wheezes, rales, rhonchi; O2 sats = 98 on 2L NC ABD: Soft, non-tender, non-distended; bowel sounds present; no rebound or guarding EXT: LLE 1.5 times more swelling > RLE; non tender; no rashes or lesions NEURO: CN 2-12 intact; no focal deficits - Assessment and Plan (1) GI bleed Current Visit: Yes Status: Acute Assessment and Plan: Acute blood loss anemia with likely GI bleed Transfused 1 unit of PRBC to keep hgb above 8. Plan for EGD and colonscopy today Patient's baseline hemoglobin is 11 but came in at 7 on admission. Continue IV protonix, CBC q 8hrs (2) Chest pain Current Visit: Yes Status: Acute Assessment and Plan: Pt comes in with chest pain during dialysis and has rsk factor s for CAD. V/Q scan to r/o PE negative Will obtain 2D echo and nuclear stress test. Nuclear stress test scheduled for tuesday (3) CKD (chronic kidney disease) stage 4, GFR 15-29 ml/min Current Visit: Yes Status: Acute Assessment and Plan: ESRD . continue dialysis per schedule (4) Diabetes Current Visit: Yes Status: Acute Assessment and Plan: Continue insulin and monitor fingersticks (5) HLD (hyperlipidemia) Current Visit: Yes Status: Acute Assessment and Plan: Continue home meds (6) HTN (hypertension) Current Visit: Yes Status: Acute Assessment and Plan: Will start on amlodipine (7) DVT (deep venous thrombosis) Current Visit: Yes Status: Acute Assessment and Plan: On coumadin which is held due to GI bleed - Time Spent with Patient Total time spent is greater than 50% in coordination of care (as documented) at patient's floor/unit and/or counseling patient: Internal Medicine: Result - Labs CBC & Chem 7: 02/17/18 04:06 02/17/18 04:06 Labs: Short CBC 02/16/18 02/17/18 Range/Units 16:58 04:06 WBC 6.5 (4.3-11.1) K/mcL Hgb 8.7 L 8.5 L (11.5-15.4) g/dL Hct 28.3 L 27.7 L (35.3-44.9) % Plt Count 354 (140-400) K/mcL Neutrophils # 4.3 (1.6-8.9) K/mcL BMP 02/17/18 04:06 Sodium 140 Potassium 3.9 Chloride 108 H Carbon Dioxide 28 BUN 14 Creatinine 2.12 H Glucose 94 Calcium 9.9 - ABG Interpretation ABG results: PT/INR, D-dimer PT 19.3 Seconds (9.4-12.1) H 02/16/18 09:24 Consult Discharge Plan - Plan Referrals: NONE,PCP [Primary Care Provider] - (Patient is from [place]..) (1) GI bleed Qualifiers: GI bleed type/associated pathology: unspecified gastrointestinal hemorrhage type Qualified Code(s): K92.2 - Gastrointestinal hemorrhage, unspecified (2) Chest pain Qualifiers: Chest pain type: unspecified Qualified Code(s): R07.9 - Chest pain, unspecified (4) Diabetes Qualifiers: Diabetes mellitus type: other specified (including FRED) Diabetes mellitus nursing home insulin use: with terminal system operator use Diabetes mellitus complication status: without complication Qualified Code(s): E13.9 - Other specified diabetes mellitus without complications; Z79.4 - termite exterminator helper (current) use of insulin (5) HLD (hyperlipidemia) Qualifiers: Hyperlipidemia type: unspecified Qualified Code(s): E78.5 - Hyperlipidemia, unspecified (6) HTN (hypertension) Qualifiers: Hypertension type: essential hypertension Qualified Code(s): I10 - Essential (primary) hypertension (7) DVT (deep venous thrombosis) Qualifiers: DVT location: lower extremity Affected thrombotic vein of extremity: unspecified lower extremity proximal vein Chronicity: acute Laterality: left Qualified Code(s): I82.4Y2 - Acute embolism and thrombosis of unspecified deep v eins of left proximal lower extremity
--- NOTE | 2018-02-17 08:38 | Anesthesia Evaluation PreOp ---
Date of Encounter: 02/17/18 Time of Encounter: 08:36 - Past History Cardiac History: Denies any Significant Hx ( LUE vascular access creation Cardiac History: HTN, Hyperlipidemia CLIENT EVALUATOR History: Denies Any Significant HX Other Medical History: Renal (ESRD not on dialysis, still makes urine), Diabetes Type II Anesthesia History: No Prior Anesthetic Complications, Past Anesthesia : No Alcohol Use: none Drug use: none) Anesthesia History: No Prior Anesthetic Complications : No Alcohol Use: none Drug use: none Medications and Allergies Calcitriol [Rocaltrol] 0.25 mcg PO 0830 07/12/17 [History] Pravastatin Sodium [Pravachol] 40 mg PO HS 07/12/17 [History] Acetaminophen [Tylenol] 500 mg PO Q4H PRN 02/16/18 [History] Buspirone HCl [Buspar] 5 mg PO BID 02/16/18 [History] Carvedilol 3.125 mg PO BID 02/16/18 [History] Glycerin [Sani-Supp] 1 supp RC DAILY PRN 02/16/18 [History] Insulin ASPART [NovoLOG] 15 unit SQ TID 02/16/18 [History] Insulin DETEMIR [Levemir Flextouch] 15 unit SQ HS 02/16/18 [History] Losartan Potassium 25 mg PO 1200 02/16/18 [History] Melatonin 5 mg PO HS 02/16/18 [History] Sennosides/Docusate Sodium [Docusate Sodium-Senna Tablet] 2 tab PO BID 02/16/18 [History] Allergy/AdvReac Type Severity Reaction Status Date / Time iodine Allergy See Verified 02/16/18 10:15 Comments latex Allergy Rash Verified 02/16/18 10:15 naproxen [From Naprosyn] Allergy See Verified 02/16/18 10:15 Comments morphine AdvReac Vomiting Verified 02/16/18 10:15 - Meds/Allergy Pre-op Review Medications Reviewed: Yes Allergies Reviewed: Yes Beta Blockers on Current Med List: No Anesthesia Results - Labs 02/17/18 04:06 02/17/18 04:06 - Imaging EKG: report reviewed (SINUS RHYTHM ANTEROSEPTAL MYOCARDIAL INFARCTION, OF INDETERMINATE AGE) Additional studies: Echo 02/2016 Impressions: Technically sub-optimal due to poor echocardiographic windows. Normal LV systolic function, LVEF 60-65%. Not all myocardial segments were well visualized due to poor image quality. Mild concentric left ventricular hypertrophy. Mild left ventricular diastolic dysfunction. Normal right ventricular structure and function. Moderate mitral annular calcification. No mitral stenosis. Trace mitral regurgitation. No significant valvular dysfunction. No evidence of pulmonary hypertension. Anesthesia Exam Vital Signs/O2 Sat, Most Current Temp Pulse Resp BP Pulse Ox 98.7 F 105 18 185/75 96 02/17/18 06:50 02/17/18 06:50 02/17/18 06:50 02/17/18 06:50 02/17/18 06:50 Blood glucose: 0 NPO (# of Hours): > 8 hrs Pain Scale: 0 Pain Scale Used: Numeric (1 - 10) - HEENT Pupil (Motor): EOMI (left EOM impaired compaired to left) Mallampati: II Teeth: Missing Denture Type: Upper: Complete Oral Opening: Greater than 3 - CLIENT EVALUATOR LOC: Oriented CLIENT EVALUATOR Motor: Normal RUE, Normal LUE, Normal RLE, Normal LLE, Normal Face CLIENT EVALUATOR Sensory: Normal: RUE, LUE, RLE, LLE, Face - Cardiac Rhythm: Regular Murmur: None JVD: No Carotid Bruit: No - Pulmonary Breath Sounds: bilateral Clear Respiratory Effort: Symmetrical Anesthesia Assess/Plan ASA Score: 3 Level of consciousness: Cooperative Anesthetic Plan: MAC Autologous Blood: Yes Monitoring Plan: Standard Monitors Recovery Plan: Other
[2018-02-17] MEDS: Insulin LISPRO 300 UNITS/3 ML VIAL SQ SCH ×4 (08:46→21:52)
[2018-02-17] MEDS: Sennosides/Docusate Sodium TABLET PO SCH ×2 (08:55→21:51)
[2018-02-17 10:44] LABS: Hepatitis B Surface Antigen Nonreactive (Nonreactive)
[2018-02-17] MEDS ORDERED: Tetracaine/Benzocaine/Butamben 1 SPRAY AEROSOL MM ONE (13:44)
[2018-02-17] MEDS ORDERED: *HR* FentaNYL (PF) 100 MCG/2 ML VIAL IVP ONE (13:44)
[2018-02-17] MEDS ORDERED: Simethicone 40 MG/0.6 ML MLS IR ONE (13:44)
[2018-02-17] MEDS ORDERED: *HR* Midazolam HCl 5 MG/5 ML VIAL IVP ONE ×2 (13:44→13:46)
[2018-02-17] MEDS ORDERED: *HR* FentaNYL (PF) 100 MCG/2 ML VIAL ONE (13:46)
--- NOTE | 2018-02-17 13:46 | Pre-Sedation Evaluation ---
Pre-sedation evaluation - Pre-sedation checklist Date of procedure: 02/17/18 Recent Vitals: Last Vital Signs Temp 97.9 F 02/17/18 09:15 Pulse 105 02/17/18 06:50 Resp 18 02/17/18 09:15 BP 101/55 02/17/18 13:15 Pulse Ox 96 02/17/18 06:50 ASA Classification *see protocol: CLASS III-Severe systemic disease
[2018-02-17] MEDS: Melatonin 3 MG TABLET PO SCH (21:51)
[2018-02-17] MEDS: Insulin DETEMIR 100 UNIT/ML X5UNITS SQ SCH (21:52)
[2018-02-17] MEDS: Nitroglycerin 0.4 MG TAB.SUBL SL PRN ×2 (22:09→22:26)
[2018-02-17] MEDS ORDERED: diazePAM 10 MG/2 ML SYRINGE IVP ONE (23:29)
[2018-02-18] MEDS: Pantoprazole 40 MG VIAL IVP SCH (05:30)
[2018-02-18] MEDS ORDERED: Regadenoson 0.4 MG/5 ML SYRINGE IVP ONE (06:46)
--- NOTE | 2018-02-18 07:40 | Internal Med Progress Note ---
Hospitalist Progress Note - Encounter Date of Encounter: 02/18/18 Time of Encounter: 07:30 - Exam Vitals: Temp Pulse Resp BP Pulse Ox 99.7 F H 103 16 158/67 98 02/18/18 04:55 02/18/18 04:55 02/18/18 04:55 02/18/18 04:55 02/18/18 04:55 Exam: GEN: AOx3; NAD; resting comfortably; family at bedside HEENT: Atraumatic, normocephalic; EOMI; mucous membranes moist; EOMI; PERRLA CARDIO: 3/6 systolic murmur; RRR; no extra heart sounds RESP: CTAB, no wheezes, rales, rhonchi; O2 sats = 98 on 2L NC ABD: Soft, non-tender, non-distended; bowel sounds present; no rebound or guarding EXT: LLE 1.5 times more swelling > RLE; non tender; no rashes or lesions NEURO: CN 2-12 intact; no focal deficits - Assessment and Plan (1) GI bleed Current Visit: Yes Status: Acute Assessment and Plan: Acute blood loss anemia with likely GI bleed Transfused 1 unit of PRBC to keep hgb above 8. Switch protonix to po EGD and colonscopy came back WNL (2) Chest pain Current Visit: Yes Status: Acute Assessment and Plan: Pt comes in with chest pain during dialysis and has rsk factor s for CAD. V/Q scan to r/o PE negative Will obtain 2D echo and nuclear stress test. Nuclear stress test scheduled for today (3) CKD (chronic kidney disease) stage 4, GFR 15-29 ml/min Current Visit: Yes Status: Acute Assessment and Plan: ESRD . continue dialysis per schedule (4) Diabetes Current Visit: Yes Status: Acute Assessment and Plan: Continue insulin and monitor fingersticks (5) HLD (hyperlipidemia) Current Visit: Yes Status: Acute Assessment and Plan: Continue home meds (6) HTN (hypertension) Current Visit: Yes Status: Acute Assessment and Plan: Will start on amlodipine (7) DVT (deep venous thrombosis) Current Visit: Yes Status: Acute Assessment and Plan: On coumadin which is held due to GI bleed - Time Spent with Patient Total time spent is greater than 50% in coordination of care (as documented) at patient's floor/unit and/or counseling patient: Internal Medicine: Result - Labs CBC & Chem 7: 02/18/18 09:31 02/17/18 04:06 Labs: Cardiac Enzymes 02/17/18 Range/Units 21:36 Troponin I < 0.03 (< 0.04) ng/mL - ABG Interpretation ABG results: PT/INR, D-dimer PT 19.3 Seconds (9.4-12.1) H 02/16/18 09:24 - Impressions Impressions Echocardiogram 02/17/18 09:06 Impressions: LVEF 60-65%. Normal LV chamber size, wall thickness and systolic function. Mild left ventricular diastolic dysfunction. Normal right ventricular structure and function. Moderately dilated left atrium. Mild aortic stenosis. Moderate mitral stenosis, mean transmitral gradient is 8 mmHg at HR 96 bpm. Mild pulmonary hypertension. Left Ventricular Wall Motion: Rest Echo Findings All wall segments showed normal motion. Findings: Study Quality * Technically adequate exam. ECG Findings * Normal sinus rhythm. Left Ventricle * LVEF 60-65%. * Normal LV chamber size, wall thickness and systolic function. * Mild left ventricular diastolic dysfunction. Right Ventricle * Normal right ventricular structure and function. Left Atrium * Moderately dilated left atrium. Right Atrium * Normal right atrial size. Interatrial Septum * Interatrial septum not well evaluated. Aortic Valve * Moderately calcified aortic valve leaflets. * Mild aortic stenosis. * No aortic regurgitation. Mitral Valve * Moderately calcified mitral valve leaflets. * Moderate mitral stenosis. * Mean transmitral gradient is 8 mmHg at HR 96 bpm. * Trace mitral regurgitation. Tricuspid Valve * Normal tricuspid valve structure. * No tricuspid stenosis. * Trace tricuspid regurgitation. * Estimated RVSP is 43 mmHg. * Estimated RA pressure is 8 mmHg. * Mild pulmonary hypertension. Pulmonic Valve * Pulmonic valve is not well visualized. * No pulmonic stenosis. * Trace pulmonic regurgitation. Aorta * Normally sized aortic root. Pericardium * The pericardium appears normal. IVC * The IVC is dilated. * > 50% respiratory change Consult Discharge Plan - Plan Referrals: NONE,PCP [Primary Care Provider] - (Patient is from [place]..) (1) GI bleed Qualifiers: GI bleed type/associated pathology: unspecified gastrointestinal hemorrhage type Qualified Code(s): K92.2 - Gastrointestinal hemorrhage, unspecified (2) Chest pain Qualifiers: Chest pain type: unspecified Qualified Code(s): R07.9 - Chest pain, unspecified (4) Diabetes Qualifiers: Diabetes mellitus type: other specified (including FRED) Diabetes mellitus group home insulin use: with group home use Diabetes mellitus complication status: without complication Qualified Code(s): E13.9 - Other specified diabetes mellitus without complications; Z79.4 - [facility] (current) use of insulin (5) HLD (hyperlipidemia) Qualifiers: Hyperlipidemia type: unspecified Qualified Code(s): E78.5 - Hyperlipidemia, unspecified (6) HTN (hypertension) Qualifiers: Hypertension type: essential hypertension Qualified Code(s): I10 - Essential (primary) hypertension (7) DVT (deep venous thrombosis) Qualifiers: DVT location: lower extremity Affected thrombotic vein of extremity: unspecified lower extremity proximal vein Chronicity: acute Laterality: left Qualified Code(s): I82.4Y2 - Acute embolism and thrombosis of unspecified deep veins of left proximal lower extremity
[2018-02-18] MEDS: *HR* LORazepam 2 MG/ML VIAL IVP PRN (08:52)
[2018-02-18] MEDS: Insulin LISPRO 300 UNITS/3 ML VIAL SQ SCH ×2 (09:12→12:45)
[2018-02-18 09:50] LABS: Basophils % 0.6 %; Eosinophils # 0.2 K/mcL (0.0-0.6); Hematocrit 28.8 % (35.3-44.9); Hemoglobin 8.7 g/dL (11.5-15.4); Immature Granulocytes % 0.3 % (0-4); Lymphocytes # 1.3 K/mcL (0.6-4.6); Lymphocytes % 19.8 %; Mean Corpuscular HGB Conc 30.2 g/dL (31.6-35.5); Mean Corpuscular Hemoglobin 27.4 pg (28.0-33.3); Mean Corpuscular Volume 90.9 fL (83.0-100.0); Mean Platelet Volume 9.9 fL (9.4-12.4); Monocytes # 0.8 K/mcL (0.0-1.3); Monocytes % 12.2 %; Platelet Count 310 K/mcL (140-400); Red Blood Count 3.17 M/mcL (3.82-4.97); Red Cell Distribution Width 14.5 % (11.5-14.5); Segmented Neutrophils % 64.1 %
[2018-02-18 12:08] VITALS: BP 161/62
[2018-02-18] MEDS: Sennosides/Docusate Sodium TABLET PO SCH (12:45)
--- NOTE | 2018-02-18 12:59 | Discharge Summary ---
Orders not resulted at time of discharge: Pending orders 02/15/18 20:24 ECG 12 lead ECG [ECG] Routine 02/17/18 21:25 ECG 12 lead ECG [ECG] Stat 02/18/18 09:07 NM benjamin perf SPECT multi [NM] Routine Date of Encounter: 02/18/18 Time of Encounter: 13:00 - Discharge Diagnosis (1) Chest pain Priority: Primary Status: Acute Assessment and Plan: 72 year old female with past medical history significant for an stage renal disease on hemodialysis, hypertension, hyperlipidemia, diabetes, LLE DVT on coumadin who presented from dialysis to [facility] ED with complaints of chest pain. Patient states that she was feeling chest pain as of this morning prior to dialysis, and then after 2 hours of dialysis started feeling chest pain again. Describes chest pain as heavy, pressure-like, "like something was sitting on his chest" and notes that it radiated to both her arms. Notes pain was significant but resolved after 5 minutes. She was assessed with chest pain r/o ACS vs PE. V/Q scan to r/o PE came back negative. She had a 2D echo and a nuclear stress test which came back negative for ischemia. She was also assessed with acute blood loss anemia r/o GI bleed and was transfused 1 unit PRBC. She had a colonscopy and EGD that came back negative for GI bleed. She was discharged home in a stable condition. 35minutes was spent discharging this patient Qualifiers: Chest pain type: unspecified Qualified Code(s): R07.9 - Chest pain, unspecified (2) GI bleed Priority: Primary Status: Acute Assessment and Plan: Acute blood loss anemia with likely GI bleed Transfused 1 unit of PRBC to keep hgb above 8. Switch protonix to po EGD and colonscopy came back WNL Qualifiers: GI bleed type/associated pathology: unspecified gastrointestinal hemorrhage type Qualified Code(s): K92.2 - Gastrointestinal hemorrhage, unspecified (3) CKD (chronic kidney disease) stage 4, GFR 15-29 ml/min Priority: Primary Status: Acute (4) Diabetes Priority: Primary Status: Acute Qualifiers: Diabetes mellitus type: other specified (including FRED) Diabetes mellitus manager terminal insulin use: with manager terminal use Diabetes mellitus complication status: without complication Qualified Code(s): E13.9 - Other specified diabetes mellitus without complications; Z79.4 - [facility] (current) use of insulin (5) HLD (hyperlipidemia) Priority: Primary Status: Acute Qualifiers: Hyperlipidemia type: unspecified Qualified Code(s): E78.5 - Hyperlipidemia, unspecified (6) HTN (hypertension) Priority: Primary Status: Acute Qualifiers: Hypertension type: essential hypertension Qualified Code(s): I10 - Essential (primary) hypertension (7) DVT (deep venous thrombosis) Priority: Primary Status: Acute Qualifiers: DVT location: lower extremity Affected thrombotic vein of extremity: unspecified lower extremity proximal vein Chronicity: acute Laterality: left Qualified Code(s): I82.4Y2 - Acute embolism and thrombosis of unspecified deep veins of left proximal lower extremity Hospital course: Ms. Pearson is a 72 year old female - Time Spent with Patient Total time spent providing and/or coordinating discharge services: - Discharge Medications Home Medications: Calcitriol [Rocaltrol] 0.25 mcg PO 0830 07/12/17 [History] Pravastatin Sodium [Pravachol] 40 mg PO HS 07/12/17 [History] Acetaminophen [Tylenol] 500 mg PO Q4H PRN 02/16/18 [History] Buspirone HCl [Buspar] 5 mg PO BID 02/16/18 [History] Carvedilol 3.125 mg PO BID 02/16/18 [History] Glycerin [Sani-Supp] 1 supp RC DAILY PRN 02/16/18 [History] Insulin ASPART [NovoLOG] 15 unit SQ TID 02/16/18 [History] Insulin DETEMIR [Levemir Flextouch] 15 unit SQ HS 02/16/18 [History] Losartan Potassium 25 mg PO 1200 02/16/18 [History] Melatonin 5 mg PO HS 02/16/18 [History] Sennosides/Docusate Sodium [Docusate Sodium-Senna Tablet] 2 tab PO BID 02/16/18 [History] Allergies/Adverse Reactions: Allergy/AdvReac Type Severity Reaction Status Date / Time iodine Allergy See Verified 02/16/18 10:15 Comments latex Allergy Rash Verified 02/16/18 10:15 naproxen [From Naprosyn] Allergy See Verified 02/16/18 10:15 Comments morphine AdvReac Vomiting Verified 02/16/18 10:15 Date of admission: 02/15/18 20:24 Primary care physician: PCP NONE Consults: 02/15/18 20:31 Consult to Gastroenterology [CONS] Routine Consulting Provider: Gastroenterology Allyssa Reason for Consult: GI bleed in the setting of Hx of DVT on COumadin Time Notified: 21:20 Call Completed: Yes 02/15/18 21:19 Consult to Nephrology [CONS] Routine Consulting Provider: Kidney Allyssa/DARION/ROMAINE/SANDI Reason for Consult: ESRD on HD Time Notified: 21:20 Call Completed: Yes 02/17/18 08:00 Consult to Dialysis [CONS] ONCE 02/17/18 08:01 Consult to Toll Bridge Operator [CONS] Routine Reason for SW Consult: return to [facility] Vitals: Temp Pulse Resp BP Pulse Ox 98.1 F 97 16 161/62 99 02/18/18 12:04 02/18/18 12:04 02/18/18 12:04 02/18/18 12:04 02/18/18 12:04 General appearance: Present: cooperative, A&O X 3, pleasant, no acute distress, obese, answers questions appropriately Exam: GEN: AOx3; NAD; resting comfortably; family at bedside HEENT: Atraumatic, normocephalic; EOMI; mucous membranes moist; EOMI; PERRLA CARDIO: 3/6 systolic murmur; RRR; no extra heart sounds RESP: CTAB, no wheezes, rales, rhonchi; O2 sats = 98 on 2L NC ABD: Soft, non-tender, non-distended; bowel sounds present; no rebound or guarding EXT: LLE 1.5 times more swelling > RLE; non tender; no rashes or lesions NEURO: CN 2-12 intact; no focal deficits - Patient Status Disposition: Home, Self-Care Condition: Good - Discharge Instructions Follow Up With: NONE,PCP [Primary Care Provider] - (Patient is from [place]..)
--- NOTE | 2018-02-18 13:07 | Physician Discharge Referral ---
- Diagnosis (1) Chest pain Priority: Primary Status: Acute (2) GI bleed Priority: Primary Status: Acute (3) CKD (chronic kidney disease) stage 4, GFR 15-29 ml/min Priority: Primary Status: Acute (4) Diabetes Priority: Primary Status: Acute (5) HLD (hyperlipidemia) Priority: Primary Status: Acute (6) HTN (hypertension) Priority: Primary Status: Acute (7) DVT (deep venous thrombosis) Priority: Primary Status: Acute - Transfer Medications Home Medications: Calcitriol [Rocaltrol] 0.25 mcg PO 0830 07/12/17 [History] Pravastatin Sodium [Pravachol] 40 mg PO HS 07/12/17 [History] Acetaminophen [Tylenol] 500 mg PO Q4H PRN 02/16/18 [History] Buspirone HCl [Buspar] 5 mg PO BID 02/16/18 [History] Carvedilol 3.125 mg PO BID 02/16/18 [History] Glycerin [Sani-Supp] 1 supp RC DAILY PRN 02/16/18 [History] Insulin ASPART [NovoLOG] 15 unit SQ TID 02/16/18 [History] Insulin DETEMIR [Levemir Flextouch] 15 unit SQ HS 02/16/18 [History] Losartan Potassium 25 mg PO 1200 02/16/18 [History] Melatonin 5 mg PO HS 02/16/18 [History] Sennosides/Docusate Sodium [Docusate Sodium-Senna Tablet] 2 tab PO BID 02/16/18 [History] Allergies/Adverse Reactions: Allergy/AdvReac Type Severity Reaction Status Date / Time iodine Allergy See Verified 02/16/18 10:15 Comments latex Allergy Rash Verified 02/16/18 10:15 naproxen [From Naprosyn] Allergy See Verified 02/16/18 10:15 Comments morphine AdvReac Vomiting Verified 02/16/18 10:15 - Respiratory Orders Smoking Cessation: Smoking cessation has been advised. For more information, call the [place] Tobacco Quit Line at 5-416-QBCI-NOW. - Mobility Orders Ambulate - Diet Orders Cardiac CERTIFICATION: I certify that the transfer of the above named patient to an Extended Care Facility is necessary for the continuing treatment of the diagnosis listed. The above information is true and accurate reflection of patient's current condition. Confidential - Redisclosure prohibited without a patient's written consent.
--- NOTE | 2018-02-20 22:29 | Electrocardiograph Report ---
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
== END 2018-02-18 15:06 | disposition home or self-care (01) | DRG 393 ==
LOC: 2ANU
PROVIDERS: ADMIT Internal Medicine; ATTEND Internal Medicine